=== PATIENT | female | born 1960 | race Caucasian/White ===

== ENCOUNTER → 2017-10-31 | Outpatient (CLI) | payer BC, OTHER ==
[~2017-10-31] MED LIST: ACET-1966 PO; ASCO1TAB5; LACT1CAP6 PO; VITA-175 PO
--- NOTE | 2017-11-01 08:56 | RADIOLOGY IMAGING REPORT ---
FACILITY: [facility] PATIENT NAME: SALLY HURST : [id number] MR: [id number] V: [id number] EXAM DATE: ORDERING PHYSICIAN: PAULA QUESADA TECHNOLOGIST: Jaci Serrano PROCEDURE:BILATERAL DIGITAL SCREENING MAMMOGRAM WITH CAD ASSISTED INTERPRETATION AND 3D BREAST TOMOSYNTHESIS. COMPARISON:Prior mammograms dated 08/15/16, 01/23/13 and 09/15/11. INDICATIONS:SCREENING FINDINGS: Moderately dense fibroglandular tissue is seen throughout the breasts. The parenchymal pattern has remained stable when allowing for difference in mammographic technique and patient positioning. There is no evidence of malignant appearing mass, malignant appearing calcification or other secondary sign of malignancy in either breast. DIAGNOSTIC CATEGORY 1--NEGATIVE. RECOMMENDATIONS: ROUTINE MAMMOGRAM AND CLINICAL EVALUATION. IMPRESSION: Bi-RADS 1: No significant abnormality is seen. Images were reviewed with R2CAD and 3D breast tomosynthesis. Dictated by: Zeny Weir M.D. on 10/31/2017 at 16:17 Transcribed by: ENRIQUE on 10/31/2017 at 18:48 Approved by: Zeny Weir M.D. on 11/01/2017 at 8:55 [facility]
== END ==
LOC: MAMO 00:33
PROVIDERS: ATTEND Family Medicine
DX: Z12.31 Encounter for screening mammogram for malignant neoplasm of breast (principal)
CPT/HCPCS: 77063; 77067

== ENCOUNTER → 2019-02-05 | Outpatient (CLI) | payer BC | LOC: LAB 13:00 | PROVIDERS: ATTEND Nurse Practitioner | DX: Z13.220 Encounter for screening for lipoid disorders (principal) | CPT/HCPCS: 36415; 82465; 83718; 84478 ==

== ENCOUNTER → 2019-04-08 | Outpatient (CLI) | payer BC ==
[~2019-04-08] MED LIST changes: +ATOV1TAB17 PO; +AZIT500T47 PO; +[UNRECOGNIZED DRUG - CODE] IM
--- NOTE | 2019-04-09 10:50 | RADIOLOGY IMAGING REPORT ---
[place] [facility] [place]: SALLY HURST : [id number] MR: [id number] V: [id number] EXAM DATE: [id number] ORDERING PHYSICIAN: MONICA FLORES TECHNOLOGIST: Jaci Serrano PROCEDURE: BILATERAL DIGITAL SCREENING MAMMOGRAM WITH CAD ASSISTED INTERPRETATION & 3D TOMOSYNTHESIS REASON FOR STUDY: Screening FAMILY HISTORY OF BREAST CANCER: Maternal Grandmother, Maternal Aunt BREAST PROCEDURES/TREATMENTS: None COMPARISON: 10/31/17, 08/15/16, 01/23/13 VIEWS OBTAINED: Bilateral 2D & 3D full field CC & MLO projections BREAST DENSITY: The breasts are heterogeneously dense which can obscure small masses. MAMMOGRAM FINDINGS: Most of the parenchymal pattern has remained stable allowing for difference in mammographic technique & patient positioning. There is, however, an asymmetry just above the mid nipple line on the Right MLO view best appreciated on tomographic slice #42 for which spot compression view is recommended. Depending on the additional imaging findings Right breast Ultrasound may also be of value. IMPRESSION: BIRADS 0: Incomplete, need additional imaging evaluation Additional views of the Right breast & Right breast Ultrasound recommended. DIAGNOSTIC CATEGORY 0--INCOMPLETE: NEED ADDITIONAL IMAGING EVALUATION. RECOMMENDATIONS: ADDITIONAL MAMMOGRAPHIC VIEWS REQUIRED: RIGHT BREAST. ULTRASOUND: RIGHT BREAST. Dictated by: Zeny Weir M.D. on 04/08/2019 at 15:30 Transcribed by: ALDO on 04/09/2019 at 7:06 Approved by: Zeny Weir M.D. on 04/09/2019 at 10:47 [facility]
== END ==
LOC: MAMO 00:17
PROVIDERS: ATTEND Nurse Practitioner Family
DX: Z12.31 Encounter for screening mammogram for malignant neoplasm of breast (principal); R92.8 Other abnormal and inconclusive findings on diagnostic imaging of breast
CPT/HCPCS: 77063; 77067